=== PATIENT | female | born 1975 | race African-American/Black ===

== ENCOUNTER → 2017-09-10 | Outpatient (CLI) | payer MEDICARE ==
--- NOTE | 2017-09-11 19:58 | Diagnostic Imaging Report ---
Bilateral screening mammogram 2D views with tomosynthesis. The current study was also evaluated with a Computer Aided Detection (CAD) system. INDICATION: Screening. No current complaints stated on the questionnaire. COMPARISON: None. This is a baseline study. FINDINGS: The breasts are composed of heterogeneously dense parenchyma which may decrease mammographic sensitivity. There are occasional benign-appearing calcifications seen. No mass, architectural distortion, or suspicious cluster of calcifications is identified. IMPRESSION: Dense breasts with no definite focal lesion identified. Annual screening mammogram is recommended. ACR BI-RADS Category 2: Benign findings. Result letter will be mailed to the patient. Note: At least 10% of breast cancer is not imaged by mammography. Dictated by: Dictated on workstation # [id number]
== END ==
LOC: RAD 09:59
PROVIDERS: ATTEND Nurse Practitioner Family
DX: Z12.31 Encounter for screening mammogram for malignant neoplasm of breast (principal)
CPT/HCPCS: 77067

== ENCOUNTER → 2019-01-15 | Outpatient (CLI) | payer MEDICAID, MEDICARE ==
--- NOTE | 2019-01-15 19:04 | Diagnostic Imaging Report ---
INDICATION: Routine screening. COMPARISON: Prior mammogram from 09/10/2017. EXAMINATION: 2D and 3D bilateral screening mammography was performed with CAD. The current study was also evaluated with a Computer Aided Detection (CAD) system. FINDINGS: Both breasts are heterogeneously dense, limiting the sensitivity of mammography. The parenchymal pattern is stable. No dominant mass or malignant-appearing microcalcifications are seen. There are small circumscribed nodular densities, bilaterally, which appear stable. The axillae are unremarkable. IMPRESSION: No mammographic features suspicious for malignancy are identified. ACR BI-RADS Category 2: Benign findings. Result letter will be mailed to the patient. Note: At least 10% of breast cancer is not imaged by mammography. Dictated by: Dictated on workstation # [id number]
== END ==
LOC: RAD 09:44
PROVIDERS: ATTEND Nurse Practitioner Family
DX: Z12.31 Encounter for screening mammogram for malignant neoplasm of breast (principal)
CPT/HCPCS: 77067